=== PATIENT | male | born 2000 | race Caucasian/White ===

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

== ENCOUNTER 2024-08-28 06:44 | Emergency (ER) | payer SELFPAY ==
[2024-08-28 07:02] VITALS: BP 129/74; PULSE 96; RESP 17; TEMP 37.2; O2SAT 99; BMI 17.9
--- NOTE | 2024-08-28 07:02 | XRR_ITS ---
PROCEDURE INFORMATION: Exam: XR Chest Exam date and time: 08/28/2024 7:09 AM Age: 24 years old Clinical indication: Other: Tachy; Additional info: Palpitations TECHNIQUE: Imaging protocol: Radiologic exam of the chest. Views: 1 view. COMPARISON: CR XR chest 1V portable [id number] 10/13/2020 2:30 PM FINDINGS: Lungs: No focal consolidation. Pleural spaces: No significant pleural fluid. No pneumothorax detected. Heart/Mediastinum: Heart size within normal range. No pulmonary vascular congestion. Bones/joints: No obvious acute abnormality. XR/XR chest 1V portable [id number] IMPRESSION: No acute cardiopulmonary abnormality detected on AP portable chest radiograph.
--- NOTE | 2024-08-28 07:07 | ED_ITS ---
HPI - Arrhythmia/Palpitations 2 General: Chief Complaint: Arrhythmia/Palpitations Stated Complaint: heart beating funny Time Seen by Provider: 08/28/24 07:02 History of Present Illness: 24-year-old male presents emergency room complaining of intermittent palpitations and his heart. Lasted for about 20 to 30 minutes and resolved spontaneously he has not had any further episodes he has no chest discomfort at this time. He does have a little bit of a low-grade fever. He does not have particular significant cough abdominal pain vomiting or diarrhea Related Data Home Medications Medication Instructions Recorded Confirmed No Known Home Medications 08/28/24 08/28/24 Allergies Allergy/AdvReac Type Severity Reaction Status Date / Time Penicillins Allergy Unknown Verified 02/15/24 13:37 Review of Systems 2 Const: Denies: fever(s) or chills Card: Reports: palpitations; Denies: chest pain Resp: Denies: dyspnea GI: Denies: abdominal pain : Denies: dysuria, urinary frequency or urinary urgency Musc: Denies: neck pain or back pain Skin/Breast: Denies: rash PFSH ED 2 PFSH: Medical History Psychiatric care Family History Mother Ojshp-Fgyrpxikl-Maxmj (WPW) syndrome Social History Smoking and tobacco/nicotine status: tobacco/nicotine user, details unknown (occasionally ) Alcohol intake: never Substance/Drug Use: never Physical Exam 2 Const: COMMON NORMALS: no acute distress GENERAL APPEARANCE: cooperative and comfortable ORIENTATION/CONSCIOUSNESS: Yes awake, Yes oriented to person, Yes oriented to place and Yes oriented to time HENMT: COMMON NORMALS: normocephalic, atraumatic and hearing grossly normal bilaterally HEAD & SCALP: normocephalic and atraumatic Resp: COMMON NORMALS: normal respiratory effort, No retractions, No use of accessory muscles and clear to auscultation bilaterally AUSCULTATION: clear to auscultation bilaterally Cardio: COMMON NORMALS: regular rate, regular rhythm and No murmurs present (Cardio) RATE: regular rate RHYTHM: regular rhythm GI: COMMON NORMALS: Soft to palpation and No hepatosplenomegaly present A USCULTATION: Yes normoactive bowel sounds PALPATION: Yes Soft to palpation, No Tenderness to palpation present (GI), No Guarding due to palpation present (GI) and Yes No hepatosplenomegaly present Extremity: COMMON NORMALS: normal to inspection, capillary refill normal, no clubbing, cyanosis or edema, no calf tenderness and no pedal edema Neuro: SENSORIUM/ORIENTATION: Yes oriented to person, Yes oriented to place and Yes oriented to time Skin: COMMON NORMALS: no rashes or lesions noted GENERAL SKIN EXAM: no rashes or lesions noted Course 2 Vital Signs: Vital signs: Vital Signs Temperature 99.0 F 08/28/24 07:02 Pulse Rate 77 08/28/24 09:16 Respiratory Rate 17 08/28/24 07:02 Blood Pressure 117/68 08/28/24 09:16 Pulse Oximetry 96 08/28/24 09:16 Oxygen Delivery Me thod Room Air 08/28/24 07:02 MDM - Arrhythmia/Palpitations Medical Decision Making 8 occasional PVCs will Eysuvis is no further symptoms will discharge patient home set him up for a Holter monitor labs done today were unremarkable. Medical Records I reviewed the patient's medical records. Lab Data I reviewed the patient's lab results. 08/28/24 07:22 08/28/24 07:22 Radiology Impressions Chest X-Ray 08/28/24 07:02 IMPRESSION: No acute cardiopulmonary abnormality detected on AP portable chest radiograph. Laboratory Results WBC 6.61 10^3/uL (3.29-11.43) 08/28/24 07:22 RBC 4.83 10^6/uL (3.85-5.65) 08/28/24 07:22 Hgb 14.40 g/dL (11.27-16.99) 08/28/24 07:22 Hct 42.2 % (37-53) 08/28/24 07:22 MCV 87.4 fl (82-101) 08/28/24 07:22 MCH 29.8 pg (27-33) 08/28/24 07:22 MCHC 34.1 g/dL (30-55) 08/28/24 07:22 RDW 11.7 % (12.1-15.1) L 08/28/24 07:22 Plt Count 245 10^3/cmm (157-399) 08/28/24 07:22 MPV 10.6 fL (7.4-10.4) H 08/28/24 07:22 Neut % (Auto) 51.2 % 08/28/24 07:22 Lymph % (Auto) 36.3 % 08/28/24 07:22 [place] % (Auto) 6.8 % 08/28/24 07:22 Eos % (Auto) 4.1 % 08/28/24 07:22 Baso % (Auto) 1.4 % 08/28/24 07:22 Neut # (Auto) 3.39 10^3/uL (1.8-7.7) 08/28/24 07:22 Lymph # (Auto) 2.4 10^3/uL (0.8-4.8) 08/28/24 07:22 [place] # (Auto) 0.5 10^3/uL (0.2-0.9) 08/28/24 07:22 Eos # (Auto) 0.3 10^3/uL (0.0-0.8) 08/28/24 07:22 Baso # (Auto) 0.1 10^3/uL (0.0-0.1) 08/28/24 07:22 Nucleated RBC % (auto) 0 % 08/28/24 07: Nucleated RBCs # 0.0 /100WBC 08/28/24 07:22 Sodium 140 mmol/L (136-145) 08/28/24 07:22 Potassium 3.8 mmol/L (3.5-5.1) 08/28/24 07:22 Chloride 104 mmol/L (98-107) 08/28/24 07:22 Carbon Dioxide 24 mmol/L (22-29) 08/28/24 07:22 Anion Gap 15.8 (5-19) 08/28/24 07:22 BUN 12 mg/dL (6-20) 08/28/24 07:22 Creatinine 1.0 mg/dL (0.7-1.2) 08/28/24 07:22 GFR Calculation 93.4 mL/min (90-130) 08/28/24 07:22 Glucose 105 mg/dL (65-115) 08/28/24 07:22 Calculated Osmolality 290 mOsm/kg (285-295) 08/28/24 07:22 Calcium 9.5 mg/dL (8.5-10.5) 08/28/24 07:22 Total Bilirubin 0.6 mg/dL (0.15-1.2) 08/28/24 07:22 AST 18 U/L (0-40) 08/28/24 07:22 ALT 12 U/L (0-41) 08/28/24 07:22 Alkaline Phosphatase 92 U/L (40-130) 08/28/24 07:22 Total Protein 7.4 g/dL (6.6-8.7) 08/28/24 07:22 Albumin 4.7 g/dL (3.5-5.2) 08/28/24 07:22 Globulin 2.7 g/dL (1.3-4.6) 08/28/24 07:22 TSH 1.93 uIU/mL (0.27-4.20) 08/28/24 07:22 All radiology interpretation(s) finalized by discharge Discharge Plan Discharge Patient Disposition: Home Clinical Impression: Palpitation Condition: Stable Prescriptions: No Action No Known Home Medications Discharge Orders: Discharge ED (Routine); Ordered 08/28/24 Ordered By: Richard Cervantes Discharge Diet: Usual diet Discharge Activity: Resume usual activity Patient Instructions: Opioid Safety, Pain Management Activity Restrictions/Additional Instructions: Thank you for choosing [facility] for your healthcare needs today. It is very important that you follow up as instructed or that you return to the Emergency Department should you have concerns or if your condition changes or worsens in any way. You were seen in the emergency room for complaints of palpitations. While in the emergency room you had a few PVCs these are generally benign they may be what is causing the sensation of palpitations. There is no treatment needed for these. Basic laboratory test done today did not show any clinically significant abnormalities. Will discharge you home and set up an outpatient Holter monitor to further evaluate and have you follow-up with the results with your primary care doctor. Coding Level of Care Code ED Development Educator for Mary Ellison
--- NOTE | 2024-08-28 07:08 | ECG_ITS ---
[facility] [place] [facility]: 2024-08[facility]28 Pat Name: Bo Peterson Department: Room: Gender: Male Independent Freight Agent: : 2000 Requested By: Richard Liu Order Number: [id number] Sanjiv MD: Vicki Calhoun M.D. Measurements Intervals [place] Rate: 75 P: 77 DE: 159 QRS: 90 QRSD: 72 T: 73 QT: 349 QTc: 391 Interpretive Statements SINUS RHYTHM Compared to ECG 10/13/2020 16:44:25 Sinus arrhythmia no longer present Early repolarization no longer present Electronically Signed On 08-28-2024 16:57:26 INSIDE OUTSIDE SALES REPRESENTATIVE by Vicki Calhoun M.D. [email or web address]
[2024-08-28 07:26] LABS: Basophils # 0.1 10^3/uL (0.0-0.1); Basophils % 1.4 %; Eosinophils # 0.3 10^3/uL (0.0-0.8); Eosinophils % 4.1 %; Hematocrit 42.2 % (37-53); Lymphocytes # 2.4 10^3/uL (0.8-4.8); Lymphocytes % 36.3 %; Mean Corpuscular HGB Conc 34.1 g/dL (30-55); Mean Corpuscular Hemoglobin 29.8 pg (27-33); Mean Corpuscular Volume 87.4 fl (82-101); Mean Platelet Volume 10.6 fL (7.4-10.4); Monocytes # 0.5 10^3/uL (0.2-0.9); Monocytes % 6.8 %; Neutrophils # 3.39 10^3/uL (1.8-7.7); Neutrophils % 51.2 %; Nucleated Red Blood Cells % 0 %; Platelet Count 245 10^3/cmm (157-399); Red Blood Count 4.83 10^6/uL (3.85-5.65); Red Cell Distribution Width 11.7 % (12.1-15.1); White Blood Count 6.61 10^3/uL (3.29-11.43)
[2024-08-28 07:50] VITALS: BP 125/70; PULSE 73; O2SAT 95
[2024-08-28 07:58] LABS: Alanine Aminotransferase 12 U/L (0-41); Albumin Level 4.7 g/dL (3.5-5.2); Alkaline Phosphatase 92 U/L (40-130); Anion Gap 15.8 (5-19); Aspartate Amino Transferase 18 U/L (0-40); Blood Urea Nitrogen 12 mg/dL (6-20); Calcium 9.5 mg/dL (8.5-10.5); Carbon Dioxide 24 mmol/L (22-29); Chloride 104 mmol/L (98-107); Creatinine Clr Calc Pharmacy 92.9234; Globulin 2.7 g/dL (1.3-4.6); Glomerular Filtration Rate 93.4 mL/min (90-130); Glucose 105 mg/dL (65-115); Osmolality Calculated 290 mOsm/kg (285-295); Potassium 3.8 mmol/L (3.5-5.1); Sodium 140 mmol/L (136-145); Thyroid Stimulating Hormone 1.93 uIU/mL (0.27-4.20); Total Bilirubin 0.6 mg/dL (0.15-1.2); Total Protein 7.4 g/dL (6.6-8.7)
[2024-08-28 08:08] VITALS: BP 121/75; PULSE 76; O2SAT 96
[2024-08-28 09:16] VITALS: BP 117/68; PULSE 77; O2SAT 96
--- NOTE | 2024-08-28 09:52 | DCPLANNER ---
messaged heart care for er f/u
== END 2024-08-28 09:23 | disposition home or self-care (01) ==
PROVIDERS: Emergency Provider Family Medicine
DX: R00.2 Palpitations (principal); Z72.0 Tobacco use
CPT/HCPCS: 36415; 71045; 80053; 84443; 85025; 93005; 99285

== ENCOUNTER → 2024-10-21 10:54 | Outpatient (BNVA) | payer SELFPAY | PROVIDERS: Visit Provider Family Medicine | DX: R50.9 Fever, unspecified (principal) | CPT/HCPCS: 87400; 87426 ==

== ENCOUNTER 2025-07-29 11:33 | Emergency (ER) | payer SELFPAY ==
[2025-07-29 11:42] VITALS: BP 109/71; PULSE 68; TEMP 36.8; O2SAT 100
--- NOTE | 2025-07-29 13:01 | W.ED.ANIMALB ---
HPI - Animal Bite General: Chief Complaint: General Medical Stated Complaint: mouth contact with kitten Time Seen by Provider: 07/29/25 12:38 Source: patient Mode of arrival: ambulatory Limitations: no limitations History of Present Illness: Patient is a 24-year-old male here after he was told to come to the emergency department for evaluation after giving a dying kitten CPR. Patient states the kitten was out in [facility] in which she works. 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 He states the kitten was meowing and then apparently went unresponsive thus prompting the patient to give him [id number] CPR. He states the kitten was not revived. He reportedly contacted the health department who told him to come to the emergency department. MD complaint: other (exposure to saliva from a kitten) Onset (ago): hour(s) Animal: cat Description of animal: immunizations unknown and appeared ill Mechanism: contact with mucous membranes Location: other (mouth) Associated symptoms: Deny chills, fever(s) or headache(s) Treatments prior to arrival: other (irrigated mouth several times) Related Data Previous Rx's ?Medication ?Instructions ?Recorded clindamycin HCl 150 mg capsule 150 mg PO TID #30 caps 10/21/24 (Cleocin HCl) Allergies Allergy/AdvReac Type Severity Reaction Status Date / Time Penicillins Allergy Unknown Verified 07/29/25 11:47 Review of Systems Const: Denies: fever(s), chills, body aches, fatigue or malaise ENMT: Denies: throat pain, enlarged tonsils, odynophagia, hoarseness, mouth pain, swelling of lips/tongue, oral sores or bleeding gums GI: Denies: nausea or vomiting Skin/Breast: Denies: rash Neuro: Denies: headache(s) or dizziness PFSH ED PFSH: Family History Mother Yqlwv-Cbpdqvlxe-Kbbng (WPW) syndrome Social History Smoking and tobacco/nicotine status: unknown if used tobacco/nicotine Alcohol intake: never Substance/Drug Use: never Physical Exam Const: COMMON NORMALS: no acute distress, average body habitus, patient oriented x3, no limitations, healthy appearing, alert and well nourished GENERAL APPEARANCE: cooperative ORIENTATION/CONSCIOUSNESS: Yes awake, Yes oriented to person, Yes oriented to place and Yes oriented to time Resp: COMMON NORMALS: normal respiratory effort Neuro: COMMON NORMALS: patient oriented x3 SENSORIUM/ORIENTATION: Yes alert, Yes oriented to person, Yes oriented to place and Yes oriented to time Course Vital Signs: Vital signs: Vital Signs Temperature 98.3 F 07/29/25 11:42 Pulse Rate 77 07/29/25 13:11 Blood Pressure 109/75 07/29/25 13:11 Pulse Oximetry 98 07/29/25 13:11 Oxygen Delivery Me thod Room Air 07/29/25 11:42 MDM - Animal Bite Medical Decision Making We did discuss starting rabies PEP based on saliva exposure to mucous membranes but patient declines. We did discuss that rabies is 100% fatal and 100% preventable with the PEP series. Patient still declines. We did discuss potentially trying to see if the health department would submit the kitten for testing. He will call them upon discharge and check on this. He is welcome to return to the emergency department at any time (to discuss how the sooner the better to start the series) should he change his mind. Medical Records I reviewed the patient's medical records. No radiology studies performed this visit Discharge Plan Discharge Patient Disposition: Home Clinical Impression: Need for post exposure prophylaxis for rabies Condition: Stable Prescriptions: No Action clindamycin HCl [Cleocin HCl] 150 mg capsule 150 mg PO TID Qty: 30 0RF Discharge Orders: Discharge ED (Routine); Ordered 07/29/25 Ordered By: Shital Mixon Patient Instructions: Patient Portal & Lynn Instructions Activity Restrictions/Additional Instructions: As we discussed, you have been offered rabies postexposure prophylaxis due to your exposure to cat saliva. You have declined. We did discuss risks of this including how rabies is 100% fatal and 100% preventative with the immunization series. We did discuss how you could potentially speak to the health department and get the animal tested since you are declining the series today. Print Language: Greenlandic Coding Level of Care Code ED Manager Intensive Care for Mary Ellison
[2025-07-29 13:11] VITALS: BP 109/75; PULSE 77; O2SAT 98
== END 2025-07-29 13:15 | disposition home or self-care (01) ==
PROVIDERS: Emergency Provider Physician Assistant
DX: Z20.3 Contact with and (suspected) exposure to rabies (principal); Z29.14 Encounter for prophylactic rabies immune globulin
CPT/HCPCS: 99281